=== PATIENT | female | born 1965 | race African-American/Black ===

== ENCOUNTER 2019-05-07 09:16 | Outpatient (CLI) | payer BC ==
[2019-05-07] MEDS ORDERED: TRAZ50TA66 PO (09:38)
[2019-05-07] MEDS ORDERED: MULT-516 PO (09:49)
[2019-05-07] MEDS ORDERED: CHRO1TAB7 PO (09:49)
== END 2019-05-07 23:59 | disposition home or self-care (01) ==
LOC: STAR 09:16
PROVIDERS: ATTEND Obstetrics & Gynecology Female Pelvic Medicine and Reconstructive Surgery
DX: Z02.9 Encounter for administrative examinations, unspecified (principal)

== ENCOUNTER 2019-06-01 08:50 | Day surgery (SDC) | payer BC ==
[~2019-06-01] VITALS: Ht 165.1 cm; Wt 63.6 kg
[~2019-06-01 08:50] MED LIST: CHRO1TAB7 PO; FENTANYL PF 250 MCG/5ML ONE; MIDAZOLAM 1 MG/ML, 2ML ONE; MULT-516 PO; TRAZ50TA66 PO
[2019-06-01] MEDS ORDERED: LACTATED RINGERS 1,000 ML IV SCH ×2 (09:08→12:52)
[2019-06-01 09:22] VITALS: BP 125/86
[2019-06-01] MEDS ORDERED: SCOPOLAMINE PATCH, 1.5MG PATCH.TD72 TD ONE ×2 (09:27→10:00)
[2019-06-01] MEDS ORDERED: GABAPENTIN 300 MG CAPSULE ONE (09:28)
[2019-06-01] MEDS ORDERED: ACETAMINOPHEN 500 MG TABLET ONE (09:28)
[2019-06-01] MEDS ORDERED: ACETAMINOPHEN 500 MG TABLET PO ONE (09:30)
[2019-06-01] MEDS ORDERED: GABAPENTIN 300 MG CAPSULE PO ONE (09:30)
[2019-06-01] MEDS ORDERED: BUPIVACAINE/PF-EPI 0.25% 1:200K ONE (10:21)
[2019-06-01] MEDS ORDERED: INDIGO CARMINE 0.8%, 5ML ONE (10:21)
[2019-06-01] MEDS ORDERED: SUCCINYLCHOLINE 20 MG/ML, 10ML ONE (10:46)
[2019-06-01] MEDS ORDERED: ROCURONIUM 10MG/ML,5ML ONE (10:46)
[2019-06-01] MEDS ORDERED: PROPOFOL 10 MG/ML, 20ML ONE (10:46)
[2019-06-01] MEDS ORDERED: CEFAZOLIN 1,000 MG ONE (10:46)
[2019-06-01] MEDS ORDERED: DEXAMETHASONE 4 MG/ML, 1ML ONE (10:46)
[2019-06-01] MEDS ORDERED: ONDANSETRON 2MG/ML, 2ML ONE (10:46)
[2019-06-01] MEDS ORDERED: DIAZEPAM 5 MG/ML, 2ML IV PRN ×2 (11:30)
[2019-06-01] MEDS ORDERED: HYDROmorphone 1 MG/ML, 1ML INJ IV PRN (11:30)
[2019-06-01] MEDS ORDERED: ONDANSETRON 2MG/ML, 2ML IVPush PRN ×2 (11:30→13:00)
[2019-06-01] MEDS ORDERED: PROMETHAZINE 25 MG/ML, 1ML IV PRN (11:30)
[2019-06-01] MEDS ORDERED: LABETALOL 5MG/ML, 20ML IV PRN (11:30)
[2019-06-01] MEDS ORDERED: METOCLOPRAMIDE 5 MG/ML, 2ML IV PRN (11:30)
[2019-06-01] MEDS ORDERED: OXYcodone 5 MG/5 ML ORAL.SOL UDC PO PRN (11:30)
[2019-06-01] MEDS ORDERED: FENTANYL PF 100 MCG/2ML IV PRN (11:30)
[2019-06-01] MEDS ORDERED: hydrALAzine 20 MG/ML, 1ML IV PRN (11:30)
[2019-06-01] MEDS ORDERED: MEPERIDINE/PF 25MG/0.5ML IVPush PRN (11:30)
[2019-06-01] MEDS ORDERED: KETOROLAC 30 MG/1 ML IV PRN (11:30)
[2019-06-01] MEDS ORDERED: ALBUTEROL SULFATE 2.5 MG/3 ML NPPB PRN (11:30)
[2019-06-01] MEDS ORDERED: OXYcodone/APAP 5/325MG TABLET PO PRN (13:00)
[2019-06-01] MEDS ORDERED: PROMETHAZINE 25 MG SUPP PR ONE (13:00)
[2019-06-01] MEDS ORDERED: IBUPROFEN 600 MG TABLET PO PRN (13:00)
== END 2019-06-01 18:00 | disposition home or self-care (01) ==
LOC: OUT 08:50
PROVIDERS: ATTEND Obstetrics & Gynecology Female Pelvic Medicine and Reconstructive Surgery
DX: D25.0 Submucous leiomyoma of uterus (principal); N95.0 Postmenopausal bleeding; N80.0 Endometriosis of uterus; N71.1 Chronic inflammatory disease of uterus; N80.2 Endometriosis of fallopian tube
CPT/HCPCS: 58552; 88307; J0330; J0690; J1100; J2250; J2405; J2704; J3010; J7120